=== PATIENT | male | born 1970 | race Caucasian/White ===

== ENCOUNTER 2021-02-14 07:22 | Emergency (ER) | payer SELFPAY ==
[~2021-02-14] VITALS: Ht 157.5 cm; Wt 55.9 kg
[2021-02-14 07:31] VITALS: BP 134/92; Ht 157.5 cm; Wt 55.9 kg
== END 2021-02-14 10:38 | disposition left against medical advice (07) ==
LOC: D.ER 07:22
DX: S61.412A Laceration without foreign body of left hand, initial encounter (principal); W01.10XA Fall on same level from slipping, tripping and stumbling with subsequent striking against unspecified object, initial encounter; Y93.9 Activity, unspecified; Y92.9 Unspecified place or not applicable; Z53.29 Procedure and treatment not carried out because of patient's decision for other reasons